=== PATIENT | female | born 1970 | race Caucasian/White ===

== ENCOUNTER 2016-05-20 21:46 | Emergency (ER) | payer OTHER ==
[~2016-05-20] VITALS: Ht 167.6 cm; Wt 86.2 kg
[~2016-05-20 21:46] MED LIST: AMOXICILLIN 50500 M1 PO; DAYQUILL
[2016-05-21 00:52] LABS: CALCIUM 8.7 mg/dL (8.5-10.1); CREATININE 0.8 mg/dL (0.6-1.3); POTASSIUM 4.3 mmol/L (3.5-5.1)
[2016-05-21 01:14] LABS: HEMATOCRIT 39.1 % (37.0-47.0); HEMOGLOBIN 13.1 gm/dL (12.0-15.0); MCH 28.7 pg (26.0-34.0); MCHC 33.5 % (28.0-37.0); MCV 85.6 fL (80.0-100.0); PLATELET COUNT 192 thou/uL (150-400); RBC 4.57 mil/uL (4.20-5.00); RDW 12.7 % (10.5-14.5); WBC 7.9 thou/uL (4.0-11.0)
[2016-05-21 01:31] LABS: MANUAL DIFF YES
[2016-05-21] MEDS ORDERED: PROMETHAZINE/C118 ML PO (01:47)
[2016-05-21] MEDS ORDERED: VENTOLIN HFA 1818 GM INH (01:47)
[2016-05-21] MEDS ORDERED: PREDNISONE 20 M20 MG PO (01:47)
[2016-05-21] MEDS ORDERED: LEVAQUIN 500 M500 M2 PO (01:47)
[2016-05-21 02:21] LABS: ABSOLUTE NEUTROPHILS 6.2 thou/uL (1.4-8.2); TOTAL CELL COUNT 100
[2016-05-21 03:15] VITALS: BP 118/76
== END 2016-05-21 03:16 | disposition home or self-care (01) ==
LOC: ER 21:46
PROVIDERS: Nurse Practitioner Family
DX: J18.9 Pneumonia, unspecified organism (principal); Z90.710 Acquired absence of both cervix and uterus; Z98.890 Other specified postprocedural states; Z90.49 Acquired absence of other specified parts of digestive tract; Z88.1 Allergy status to other antibiotic agents; Z88.6 Allergy status to analgesic agent

== ENCOUNTER → 2016-12-07 | Outpatient (CLI) | payer OTHER ==
[~2016-12-07] MED LIST changes: +LEVAQUIN 500 M500 M2 PO; +PREDNISONE 20 M20 MG PO; +PROMETHAZINE/C118 ML PO; +VENTOLIN HFA 1818 GM INH
== END | disposition home or self-care (01) ==
LOC: LITH 05:24
DX: N20.0 Calculus of kidney (principal); Z90.710 Acquired absence of both cervix and uterus; Z98.890 Other specified postprocedural states; Z88.8 Allergy status to other drugs, medicaments and biological substances